=== PATIENT | female | born 1980 | race Caucasian/White ===

== ENCOUNTER 2018-05-16 10:20 | Outpatient (CLI) | payer OTHER ==
[2018-05-16] MEDS ORDERED: ACETAMINOPHEN 325 MG TAB PO (11:00)
[2018-05-16 11:04] LABS: ADD MAN DIFF? NO
[2018-05-16 11:08] LABS: BASOPHILS % 0.3 % (0.0-2.0); EOSINOPHILS # 0.1 10^3/ul (0.0-0.5); EOSINOPHILS % 1.1 % (0.0-7.0); HEMATOCRIT 29.2 % (37.0-47.0); HEMOGLOBIN 9.9 g/dl (12.0-16.0); LYMPHOCYTES # 1.7 10^3/ul (0.8-2.9); LYMPHOCYTES % 18.4 % (15.0-51.0); MEAN CORPUSCULAR HEMOGLOBIN 33.2 pg (29.0-33.0); MEAN CORPUSCULAR HGB CONC 33.9 g/dl (32.0-37.0); MEAN PLATELET VOLUME 10.9 fl (7.4-10.4); MONOCYTE # 0.6 10^3/ul (0.3-0.9); NEUTROPHIL # 6.8 10^3/ul (1.6-7.5); NEUTROPHILS % 73.8 % (39.0-77.0); PLATELET COUNT 204 10^3/UL (140-415); RED BLOOD COUNT 2.98 10^6/ul (4.20-5.40); RED CELL DISTRIBUTION WIDTH 12.5 % (11.5-14.5)
[2018-05-16 11:08] LABS: PLATELET COUNT 200 10^3/UL (140-415); WHITE BLOOD COUNT 9.2 10^3/ul (4.8-10.8)
[2018-05-16 11:24] LABS: ALANINE AMINOTRANSFERASE 14 IU/L (13-69); ALBUMIN 3.2 g/dl (3.3-4.9); ALBUMIN/GLOBULIN RATIO 1.14; ALKALINE PHOSPHATASE 50 IU/L (42-121); ANION GAP 6 (5-13); ASPARTATE AMINO TRANSFERASE 19 IU/L (15-46); BILIRUBIN,INDIRECT 0.1 mg/dl (0-1.1); BILIRUBIN,TOTAL 0.1 mg/dl (0.2-1.3); BLOOD UREA NITROGEN 6 mg/dl (7-20); CALCIUM 8.6 mg/dl (8.4-10.2); CARBON DIOXIDE 23 mmol/L (21-31); CHLORIDE 107 mmol/L (97-110); CREATININE 0.49 mg/dl (0.44-1.00); Estimated GFR > 60 mL/min (>60); GLUCOSE 82 mg/dl (70-220); POTASSIUM 3.7 mmol/L (3.5-5.1); SODIUM 136 mmol/L (135-144)
[2018-05-16 11:27] LABS: INR 1.02; PROTIME 13.5 Sec (11.9-14.9); PT RATIO 1.1
[2018-05-16 11:28] LABS: PARTIAL THROMBOPLASTIN TIME 28.3 Sec (23.0-35.0); THROMBIN TIME 14.9 SEC (13.8-19.1)
== END 2018-05-16 13:45 | disposition home or self-care (01) ==
LOC: OBT 10:20 → L-D 10:21 → OBT 13:45
DX: O26.892 Other specified pregnancy related conditions, second trimester (principal); R10.2 Pelvic and perineal pain; Z3A.23 23 weeks gestation of pregnancy
CPT/HCPCS: 76815; 80053; 85025; 85049; 85610; 85670; 85730

== ENCOUNTER 2018-09-06 07:39 | Inpatient (IN) | payer OTHER ==
[2018-09-06] MEDS ORDERED: OXYTOCIN 30 UNITS/LR 500 ML IV ×4 (08:00→19:00)
[2018-09-06] MEDS ORDERED: CARBOPROST 250 MCG INJ IM ×2 (08:00→19:00)
[2018-09-06] MEDS ORDERED: METHYLERGONOVINE 0.2 MG INJ IM ×2 (08:00→19:00)
[2018-09-06] MEDS ORDERED: BUTORPHANOL 2 MG INJ IV (08:00)
[2018-09-06] MEDS ORDERED: MISOPROSTOL 200 MCG TAB PR ×2 (08:00→19:00)
[2018-09-06] MEDS ORDERED: LIDOCAINE 1% (MPF) 30 ML INJ INJ (08:00)
[2018-09-06] MEDS ORDERED: MISOPROSTOL 50 MCG CAPSULE VAG (08:00)
[2018-09-06 08:31] LABS: ADD MAN DIFF? NO
[2018-09-06 08:42] LABS: WHITE BLOOD COUNT 8.1 10^3/ul (4.8-10.8)
[2018-09-06 08:42] LABS: BASOPHILS % 0.4 % (0.0-2.0); EOSINOPHILS # 0.1 10^3/ul (0.0-0.5); EOSINOPHILS % 1.1 % (0.0-7.0); HEMATOCRIT 35.6 % (37.0-47.0); HEMOGLOBIN 12.3 g/dl (12.0-16.0); LYMPHOCYTES # 1.8 10^3/ul (0.8-2.9); MEAN CORPUSCULAR HEMOGLOBIN 32.8 pg (29.0-33.0); MEAN CORPUSCULAR HGB CONC 34.6 g/dl (32.0-37.0); MEAN CORPUSCULAR VOLUME 94.9 fl (82.0-101.0); MEAN PLATELET VOLUME 12.3 fl (7.4-10.4); MONOCYTE # 0.5 10^3/ul (0.3-0.9); MONOCYTES % 5.7 % (0.0-11.0); NEUTROPHIL # 5.7 10^3/ul (1.6-7.5); NEUTROPHILS % 70.6 % (39.0-77.0); PLATELET COUNT 157 10^3/UL (140-415); RED BLOOD COUNT 3.75 10^6/ul (4.20-5.40); RED CELL DISTRIBUTION WIDTH 12.4 % (11.5-14.5)
[2018-09-06 09:02] LABS: INR 0.98; PROTIME 13.1 Sec (11.9-14.9)
[2018-09-06 09:03] LABS: PARTIAL THROMBOPLASTIN TIME 27.2 Sec (23.0-35.0)
[2018-09-06] MEDS: LACTATED RINGER'S 1,000 ML IV ×2 (09:19→15:28)
[2018-09-06] MEDS: OXYTOCIN 30 UNITS/LR 500 ML IV ×3 (09:21→22:40)
[2018-09-06 09:29] LABS: HEPATITIS B SURFACE ANTIGEN NEGATIVE (NEGATIVE)
[2018-09-06 10:07] LABS: AMPHETAMINE/METHAMPHETAMINE Negative (NEGATIVE); BARBITURATES Negative (NEGATIVE); BENZODIAZEPINES Negative (NEGATIVE); CANNABINOIDS Negative (NEGATIVE); COCAINE Negative (NEGATIVE); OPIATES Negative (NEGATIVE)
[2018-09-06] MEDS: CITRIC ACID/NA CITRATE 30 ML CUP PO (15:28)
[2018-09-06 16:38] LABS: RAPID PLASMA REAGIN NONREACTIVE (NR)
[2018-09-06] MEDS ORDERED: morphine SULFATE/PF (10 MG/10 ML) INJ (16:52)
[2018-09-06] MEDS ORDERED: EPHEDrine 25 MG/5 ML SYG (16:52)
[2018-09-06] MEDS ORDERED: ONDANSETRON 4 MG INJ (16:53)
[2018-09-06] MEDS ORDERED: METOCLOPRAMIDE 10 MG INJ (16:53)
[2018-09-06] MEDS ORDERED: MIDAZOLAM 1 MG/ML 2 ML INJ (16:54)
[2018-09-06] MEDS ORDERED: OXYTOCIN 10 UNIT INJ ×2 (16:54→17:25)
[2018-09-06] MEDS ORDERED: DIPHENHYDRAMINE 50 MG INJ (17:05)
[2018-09-06] MEDS ORDERED: HYDROmorphONE 0.5 MG/0.5 ML SYG IV ×2 (17:30)
[2018-09-06] MEDS ORDERED: NALBUPHINE HCL (10 MG/1 ML) INJ IV (17:30)
[2018-09-06] MEDS ORDERED: NALOXONE (0.4 MG/ML) INJ IV ×2 (17:30)
[2018-09-06] MEDS ORDERED: MEPERIDINE 25 MG INJ IV (17:30)
[2018-09-06] MEDS ORDERED: MIDAZOLAM 1 MG/ML 2 ML INJ IV (17:30)
[2018-09-06] MEDS ORDERED: ONDANSETRON 4 MG INJ IV (17:30)
[2018-09-06] MEDS ORDERED: ZOLPIDEM 5 MG TAB PO (17:30)
[2018-09-06] MEDS ORDERED: DIPHENHYDRAMINE 50 MG INJ IV ×2 (17:30)
[2018-09-06] MEDS: CEFAZOLIN 2 GM/50 ML (PMX) 50 ML IVPB (18:33)
[2018-09-06] MEDS ORDERED: METHYLERGONOVINE 0.2 MG TAB PO (19:00)
[2018-09-06] MEDS: KETOROLAC 30 MG INJ IV (20:34)
[2018-09-06] MEDS: SENNA/DOCUSATE NA (8.6MG/50MG) TAB PO (21:00)
[2018-09-07 06:47] LABS: ADD MAN DIFF? NO
[2018-09-07 06:50] LABS: WHITE BLOOD COUNT 13.6 10^3/ul (4.8-10.8)
[2018-09-07 06:50] LABS: BASOPHILS % 0.2 % (0.0-2.0); EOSINOPHILS % 0.2 % (0.0-7.0); HEMATOCRIT 30.9 % (37.0-47.0); HEMOGLOBIN 10.7 g/dl (12.0-16.0); LYMPHOCYTES # 1.3 10^3/ul (0.8-2.9); LYMPHOCYTES % 9.7 % (15.0-51.0); MEAN CORPUSCULAR HEMOGLOBIN 32.9 pg (29.0-33.0); MEAN CORPUSCULAR HGB CONC 34.6 g/dl (32.0-37.0); MEAN CORPUSCULAR VOLUME 95.1 fl (82.0-101.0); MEAN PLATELET VOLUME 12.3 fl (7.4-10.4); MONOCYTE # 0.8 10^3/ul (0.3-0.9); MONOCYTES % 5.6 % (0.0-11.0); NEUTROPHIL # 11.3 10^3/ul (1.6-7.5); NEUTROPHILS % 83.8 % (39.0-77.0); PLATELET COUNT 136 10^3/UL (140-415); RED BLOOD COUNT 3.25 10^6/ul (4.20-5.40); RED CELL DISTRIBUTION WIDTH 12.3 % (11.5-14.5)
[2018-09-07 08:22] LABS: ANION GAP 4 (5-13); BLOOD UREA NITROGEN 8 mg/dl (7-20); CARBON DIOXIDE 24 mmol/L (21-31); CHLORIDE 105 mmol/L (97-110); CREATININE 0.57 mg/dl (0.44-1.00); Estimated GFR > 60 mL/min (>60); GLUCOSE 70 mg/dl (70-220); POTASSIUM 3.9 mmol/L (3.5-5.1); SODIUM 133 mmol/L (135-144)
[2018-09-07] MEDS: OXYTOCIN 30 UNITS/LR 500 ML IV (08:38)
[2018-09-07] MEDS: SENNA/DOCUSATE NA (8.6MG/50MG) TAB PO ×2 (08:38→21:44)
[2018-09-07] MEDS ORDERED: HYDROCODONE/APAP (5/325) TAB PO ×2 (09:30)
[2018-09-07] MEDS: LACTATED RINGER'S 1,000 ML IV ×2 (10:27)
[2018-09-07] MEDS: KETOROLAC 30 MG INJ IV (14:17)
[2018-09-08] MEDS: SENNA/DOCUSATE NA (8.6MG/50MG) TAB PO ×2 (08:56→20:41)
[2018-09-08] MEDS: IBUPROFEN 600 MG TAB PO (09:03)
[2018-09-08] MEDS: IBUPROFEN 800 MG TAB PO (20:41)
[2018-09-09] MEDS: IBUPROFEN 800 MG TAB PO ×2 (07:22→14:48)
[2018-09-09 08:11] LABS: ADD MAN DIFF? NO
[2018-09-09 08:14] LABS: BASOPHILS % 0.2 % (0.0-2.0); EOSINOPHILS # 0.3 10^3/ul (0.0-0.5); EOSINOPHILS % 2.1 % (0.0-7.0); HEMATOCRIT 28.9 % (37.0-47.0); HEMOGLOBIN 9.9 g/dl (12.0-16.0); LYMPHOCYTES # 1.5 10^3/ul (0.8-2.9); LYMPHOCYTES % 11.8 % (15.0-51.0); MEAN CORPUSCULAR HEMOGLOBIN 33.1 pg (29.0-33.0); MEAN CORPUSCULAR HGB CONC 34.3 g/dl (32.0-37.0); MEAN CORPUSCULAR VOLUME 96.7 fl (82.0-101.0); MEAN PLATELET VOLUME 11.6 fl (7.4-10.4); MONOCYTE # 0.6 10^3/ul (0.3-0.9); MONOCYTES % 5.1 % (0.0-11.0); NEUTROPHIL # 10.1 10^3/ul (1.6-7.5); NEUTROPHILS % 80.3 % (39.0-77.0); PLATELET COUNT 174 10^3/UL (140-415); RED BLOOD COUNT 2.99 10^6/ul (4.20-5.40); RED CELL DISTRIBUTION WIDTH 12.6 % (11.5-14.5)
[2018-09-09 08:14] LABS: WHITE BLOOD COUNT 12.6 10^3/ul (4.8-10.8)
[2018-09-09] MEDS: DIPHTH/TET/ACEL PERTUSS (ADULT) 0.5 ML VIAL IM* (09:00)
[2018-09-09] MEDS: MEASLES,MUMPS,RUBELLA VACCINE INJ SC* (09:00)
[2018-09-09] MEDS: SENNA/DOCUSATE NA (8.6MG/50MG) TAB PO (10:03)
[2018-09-09] MEDS: LANOLIN HPA 1 PKT TOP (10:08)
== END 2018-09-09 15:13 | disposition home or self-care (01) | DRG 788 ==
LOC: L-D 07:39 → PP1 21:46
PROVIDERS: Obstetrics & Gynecology
PROC: 10D00Z1 Extraction of Products of Conception, Low, Open Approach (ICD-10-PCS; principal; 2018-09-07)
DX: O36.63X0 Maternal care for excessive fetal growth, third trimester, not applicable or unspecified (principal); O99.02 Anemia complicating childbirth; D50.9 Iron deficiency anemia, unspecified; G89.18 Other acute postprocedural pain; Z3A.39 39 weeks gestation of pregnancy; Z37.0 Single live birth
CPT/HCPCS: 76815; 80048; 80307; 85025; 85610; 85730; 86592; 86850; 86900; 86901; 87340; 99464